=== PATIENT | male | born 1960 | race Asian ===

== ENCOUNTER 2024-07-25 08:05 | Inpatient (IN) | payer MEDICAID, OTHER ==
[~2024-07-25] VITALS: Ht 167.6 cm; Wt 75.3 kg
[2024-07-25 08:47] LABS: BASOPHILS # (AUTO) 0.1 K/UL (0.0-0.2); BASOPHILS % (AUTO) 0.8 % (0.0-2.0); EOSINOPHILS # (AUTO) 0.2 K/uL (0.0-0.7); EOSINOPHILS % (AUTO) 2.5 % (0.0-7.0); HEMATOCRIT 37.1 % (36.7-47.1); LYMPHOCYTES # (AUTO) 1.2 K/uL (0.8-4.8); LYMPHOCYTES % (AUTO) 16.7 % (20.5-51.5); MEAN CORPUSCULAR HEMOGLOBIN 31.2 uug (23.8-33.4); MEAN CORPUSCULAR HGB CONC 35 g/dL (32.5-36.3); MEAN CORPUSCULAR VOLUME 89.2 fL (73.0-96.2); MONOCYTES # (AUTO) 0.4 K/uL (0.1-1.30); NEUTROPHILS # (AUTO) 5.2 K/uL (1.8-8.9); PLATELET COUNT (AUTO) 290 K/uL (152-348); RED BLOOD CELL COUNT(AUTO) 4.16 MIL/uL (4.06-5.63); RED CELL DISTRIBUTION WIDTH 13.8 % (12.1-16.2); WHITE BLOOD COUNT (AUTO) 7.1 K/uL (3.6-10.2)
[2024-07-25] MEDS ORDERED: LORAZEPAM 2 MG/1 ML VIAL ONE (08:47)
[2024-07-25] MEDS ORDERED: levETIRAcetam 500 MG/5 ML VIAL IV ONE (08:54)
[2024-07-25 08:58] LABS: DIFFERENTIAL COMMENT 1
[2024-07-25 09:06] LABS: AMMONIA 11 umol/L (11-32)
[2024-07-25 09:07] LABS: ALANINE AMINOTRANSFERASE 12 U/L (16-63); ALBUMIN 3.7 g/dL (3.4-5.0); ALKALINE PHOSPHATASE 53 U/L (50-136); ASPARTATE AMINOTRANSFERASE 12 U/L (15-37); BILIRUBIN,DIRECT 0.1 mg/dL (0.0-0.2); BILIRUBIN,TOTAL 0.6 mg/dL (0.2-1.0); CALCIUM 9.2 mg/dL (8.5-10.1); CARBON DIOXIDE 26 mmol/L (21-32); CHLORIDE 103 mmol/L (98-107); CREATININE 1.5 mg/dL (0.6-1.3); GLUCOSE 372 mg/dL (74-106); POTASSIUM 4.1 mmol/L (3.5-5.1); SODIUM SERUM 140 mmol/L (136-145); TOTAL PROTEIN, SERUM 7.6 g/dL (6.4-8.2); UREA NITROGEN, BLOOD 23 mg/dL (7-18)
[2024-07-25 09:20] LABS: ACETAMINOPHEN < 10.0 ug/mL (10-30); ETHANOL < 3 MG/DL (0-10)
[2024-07-25] MEDS: LORAZEPAM 2 MG/1 ML VIAL IV ONE (09:21)
[2024-07-25] MEDS: levETIRAcetam IV 1,000 MG in IV DEXTROSE 5% 100 ML IV ONE (09:21)
[2024-07-25] MEDS ORDERED: CHOL200059 PO (09:50)
[2024-07-25] MEDS ORDERED: FINA5TAB11 PO (09:50)
[2024-07-25] MEDS ORDERED: AMLO2.5T4 PO (09:50)
[2024-07-25] MEDS ORDERED: LACT10SO69 PO (09:50)
[2024-07-25] MEDS ORDERED: ATOR20TA PO (09:50)
[2024-07-25] MEDS ORDERED: TAMS-3 PO (09:50)
[2024-07-25] MEDS ORDERED: METF-440 PO (09:50)
[2024-07-25] MEDS ORDERED: ACET-3117 PO (09:50)
[2024-07-25] MEDS ORDERED: ASPI-1420 PO (09:50)
[2024-07-25 09:59] LABS: THYROID STIMULATING HORMONE 2.831 mIU/mL (0.358-3.740)
[2024-07-25 10:38] LABS: *BILIRUBIN,URIN NEGATIVE (NEGATIVE); *BLOOD, URINE 2+ (NEGATIVE); *CLARITY,URINE CLEAR (CLEAR); *COLOR,URINE YELLOW (YELLOW); *KETONES,URINE NEGATIVE (NEGATIVE); *PROTEIN,URINE 3+ (NEGATIVE); *UROBILINOGEN,URINE 0.2 E.U./dl (NORMAL); LEUKOCYTE ESTERASE ,URINE NEGATIVE (NEGATIVE); NITRITE, URINE POSITIVE (NEGATIVE); PH,URINE 5.5 (5.0-8.0); UGLUCOSE 3+ (NEGATIVE)
[2024-07-25 10:49] LABS: RBC,URINE 50-80 /HPF (0-3)
[2024-07-25 10:50] LABS: BACTERIA,URINE MODERATE /HPF (NONE SEEN); URINE AMORPHOUS URATE MODERATE /HPF
[2024-07-25 11:01] LABS: *AMPHETAMINE, URINE NEGATIVE (NEGATIVE); *BARBITURATE, URINE NEGATIVE (NEGATIVE); *BENZODIAZEPINE, URINE NEGATIVE (NEGATIVE); *CANNABINOID, URINE NEGATIVE (NEGATIVE); *COCCAINE, URINE NEGATIVE (NEGATIVE); *OPIATE, URINE NEGATIVE (NEGATIVE); *PHENCYCLIDINE SCREEN,URINE NEGATIVE (NEGATIVE); FENTANYL, URINE NEGATIVE (NEGATIVE)
[2024-07-25] MEDS ORDERED: INSULIN REGULAR, HUMAN 1000 UNIT/10 ML VIAL ONE (13:16)
[2024-07-25] MEDS: INSULIN REGULAR, HUMAN 1000 UNIT/10 ML VIAL IV ONE (13:21)
[2024-07-25] MEDS ORDERED: ACETAMINOPHEN 325 MG TABLET PO PRN (14:45)
[2024-07-25] MEDS ORDERED: DEXTROSE 50% 50 ML DISP.SYRIN IV PRN (14:45)
[2024-07-25] MEDS ORDERED: ONDANSETRON 4 MG/2 ML VIAL IV PRN (14:45)
[2024-07-25] MEDS ORDERED: REMEDY ESSENTIAL ZINC PASTE 113 GM TP PRN (14:45)
[2024-07-25] MEDS ORDERED: LORAZEPAM 2 MG/1 ML VIAL IV PRN (14:45)
[2024-07-25] MEDS ORDERED: ACET325T53 PO (15:36)
[2024-07-25] MEDS ORDERED: CHOL-35 PO (15:36)
[2024-07-25] MEDS ORDERED: CEFTRIAXONE /D5W 50ML IVPB **ER PYXIS IV ONE (16:06)
[2024-07-25] MEDS: CEFTRIAXONE 1 G in IV DEXTROSE 5% 50 ML IV SCH (16:08)
[2024-07-25] MEDS: BLOOD SUGAR DIAGNOSTIC 1 EACH STRIP VI SCH (16:34)
[2024-07-25] MEDS: INSULIN REGULAR, HUMAN 1000 UNIT/10 ML VIAL SQ PRN (16:59)
[2024-07-25 19:00] VITALS: BP 147/90; TEMP 98.5; O2SAT 96
[2024-07-25] MEDS: levETIRAcetam IV 1,000 MG in IV DEXTROSE 5% 100 ML IV SCH (20:27)
[2024-07-25] MEDS: IV 1/2NS 1000 ML 1,000 ML IV PRN (20:27)
[2024-07-25] MEDS: HEPARIN SODIUM,PORCINE 5,000 UNITS/ML VIAL SQ SCH (20:29)
[2024-07-26] VITALS: BP 146/94; TEMP 98.6; O2SAT 98
[2024-07-26 04:00] VITALS: BP 145/81; TEMP 98.2; O2SAT 97
[2024-07-26 06:49] LABS: BASOPHILS # (AUTO) 0.1 K/UL (0.0-0.2); BASOPHILS % (AUTO) 0.9 % (0.0-2.0); EOSINOPHILS # (AUTO) 0.2 K/uL (0.0-0.7); EOSINOPHILS % (AUTO) 2.3 % (0.0-7.0); HEMATOCRIT 33.6 % (36.7-47.1); HEMOGLOBIN 11.7 g/dL (12.5-16.3); LYMPHOCYTES # (AUTO) 1.4 K/uL (0.8-4.8); LYMPHOCYTES % (AUTO) 17.1 % (20.5-51.5); MEAN CORPUSCULAR HEMOGLOBIN 30.6 uug (23.8-33.4); MEAN CORPUSCULAR HGB CONC 35 g/dL (32.5-36.3); MEAN CORPUSCULAR VOLUME 88.1 fL (73.0-96.2); MONOCYTES # (AUTO) 0.6 K/uL (0.1-1.30); MONOCYTES % (AUTO) 7.8 % (0.0-11.0); NEUTROPHILS # (AUTO) 5.7 K/uL (1.8-8.9); NEUTROPHILS % (AUTO) 71.9 % (38.5-71.5); PLATELET COUNT (AUTO) 287 K/uL (152-348); RED BLOOD CELL COUNT(AUTO) 3.82 MIL/uL (4.06-5.63); RED CELL DISTRIBUTION WIDTH 13.6 % (12.1-16.2); WHITE BLOOD COUNT (AUTO) 7.9 K/uL (3.6-10.2)
[2024-07-26 07:04] LABS: CALCIUM 8.4 mg/dL (8.5-10.1); CREATININE 1.2 mg/dL (0.6-1.3); MAGNESIUM 1.8 mg/dL (1.8-2.4); POTASSIUM 3.7 mmol/L (3.5-5.1)
[2024-07-26 07:13] LABS: DIFFERENTIAL COMMENT 1
[2024-07-26 07:40] VITALS: BP 142/90; TEMP 98.1; O2SAT 98
[2024-07-26] MEDS ORDERED: LACTULOSE PO PRN (09:00)
[2024-07-26 10:01] LABS: THYROID STIMULATING HORMONE 0.875 mIU/mL (0.358-3.740)
[2024-07-26] MEDS: FINASTERIDE 5 MG TABLET PO SCH (10:12)
[2024-07-26] MEDS: ASPIRIN EC 81 MG TABLET.DR PO SCH (10:13)
[2024-07-26] MEDS: CHOLECALCIFEROL 1,000 UNIT TABLET PO SCH (10:13)
[2024-07-26] MEDS: AMLODIPINE 2.5 MG TABLET PO SCH (10:14)
[2024-07-26] MEDS: LACTULOSE 20 G/30 ML LIQUID UDC PO PRN (10:14)
[2024-07-26] MEDS: PANTOPRAZOLE SODIUM 40 MG VIAL IV SCH (10:26)
[2024-07-26 11:14] VITALS: BP 123/95; TEMP 97.7; O2SAT 99
[2024-07-26 15:43] VITALS: BP 152/89; TEMP 97.7; O2SAT 99
[2024-07-26 19:46] VITALS: BP 153/97; TEMP 98.9; O2SAT 98
[2024-07-26] MEDS ORDERED: ATORVASTATIN 20 MG TABLET PO SCH (21:00)
[2024-07-26] MEDS: TAMSULOSIN HCL 0.4 MG CAP.SR.24H PO SCH (21:01)
[2024-07-26] MEDS: ATORVASTATIN 20 MG TABLET PO SCH (21:02)
[2024-07-27 00:05] VITALS: BP 154/93; TEMP 97.9; O2SAT 96
[2024-07-27 04:36] VITALS: BP 119/89; TEMP 98.4; O2SAT 99
[2024-07-27 06:18] LABS: BASOPHILS # (AUTO) 0.1 K/UL (0.0-0.2); BASOPHILS % (AUTO) 0.9 % (0.0-2.0); EOSINOPHILS # (AUTO) 0.2 K/uL (0.0-0.7); EOSINOPHILS % (AUTO) 2.3 % (0.0-7.0); HEMATOCRIT 35.8 % (36.7-47.1); HEMOGLOBIN 12.3 g/dL (12.5-16.3); LYMPHOCYTES # (AUTO) 1.3 K/uL (0.8-4.8); LYMPHOCYTES % (AUTO) 18.4 % (20.5-51.5); MEAN CORPUSCULAR HEMOGLOBIN 30.6 uug (23.8-33.4); MEAN CORPUSCULAR HGB CONC 34 g/dL (32.5-36.3); MEAN CORPUSCULAR VOLUME 89.1 fL (73.0-96.2); MONOCYTES # (AUTO) 0.6 K/uL (0.1-1.30); MONOCYTES % (AUTO) 7.9 % (0.0-11.0); NEUTROPHILS % (AUTO) 70.5 % (38.5-71.5); PLATELET COUNT (AUTO) 282 K/uL (152-348); RED BLOOD CELL COUNT(AUTO) 4.02 MIL/uL (4.06-5.63); RED CELL DISTRIBUTION WIDTH 13.8 % (12.1-16.2)
[2024-07-27 06:29] LABS: CREATININE 1.4 mg/dL (0.6-1.3); POTASSIUM 4.2 mmol/L (3.5-5.1)
[2024-07-27 06:37] LABS: DIFFERENTIAL COMMENT 1
[2024-07-27 07:27] VITALS: BP 138/87; TEMP 97.2; O2SAT 97
[2024-07-27 09:03] VITALS: BP 138/87
[2024-07-27] MEDS ORDERED: LEVE1000 PO (12:11)
[2024-07-27] MEDS ORDERED: DOXY-326 PO (12:11)
[2024-07-27] MEDS ORDERED: ATOR20TA PO (12:11)
== END 2024-07-27 21:49 | DRG 53 ==
LOC: ER 08:05 → UNDOADMIN 15:00 → TELE IN 15:00 → TELE3 17:15
PROVIDERS: ADMIT Nurse Practitioner Family; ATTEND Nurse Practitioner Family
DX: R56.9 Unspecified convulsions (principal); G93.41 Metabolic encephalopathy; N17.9 Acute kidney failure, unspecified; E87.20 Acidosis, unspecified; I69.354 Hemiplegia and hemiparesis following cerebral infarction affecting left non-dominant side; E11.65 Type 2 diabetes mellitus with hyperglycemia; B95.8 Unspecified staphylococcus as the cause of diseases classified elsewhere; D64.9 Anemia, unspecified; I11.9 Hypertensive heart disease without heart failure; E78.5 Hyperlipidemia, unspecified; N39.0 Urinary tract infection, site not specified; Z79.84 Long term (current) use of oral hypoglycemic drugs; Z79.899 Other long term (current) drug therapy; Z79.82 Long term (current) use of aspirin; Z82.3 Family history of stroke; M47.812 Spondylosis without myelopathy or radiculopathy, cervical region; F03.A0 Unspecified dementia, mild, without behavioral disturbance, psychotic disturbance, mood disturbance, and anxiety; R31.9 Hematuria, unspecified
CPT/HCPCS: 36415; 70450; 71045; 72125; 83605; 83735; 83921; 84100; 84443; 84484; 85025; 85730; 87040; 87086; 93307; C1758; G0378; G0480; J0696; J1644; J1815; J1953; J2060; J2470